=== PATIENT | female | born 1945 | race Caucasian/White ===

== ENCOUNTER → 2018-05-25 | Outpatient (CLI) | payer MEDICARE ==
--- NOTE | 2018-05-25 09:59 | RAD ---
Abdominal ultrasound, 05/25/2018: HISTORY: Thrombocytopenia The gallbladder is within normal limits in size. It contains multiple echogenic foci with posterior acoustic shadowing compatible with gallstones. The gallbladder velasquez are not thickened. The common hepatic duct is of normal caliber measuring 5 mm. No hepatic mass is evident. The spleen is of normal size. The visualized portions of the pancreas and both kidneys show no abnormality. The abdominal aorta and inferior vena cava are unremarkable. No free fluid is evident in the abdomen. IMPRESSION: Cholelithiasis. Electronically signed by: Cirilo Mcgrath MD (05/25/2018 9:56 AM) [facility]
== END | disposition home or self-care (01) ==
LOC: US 08:31
PROVIDERS: ATTEND Internal Medicine Hematology & Oncology
DX: D69.3 Immune thrombocytopenic purpura (principal); K80.20 Calculus of gallbladder without cholecystitis without obstruction
CPT/HCPCS: 76700